=== PATIENT | male | born 1985 | race African-American/Black ===

== ENCOUNTER 2018-08-23 00:14 | Emergency (ER) | payer SELFPAY ==
[~2018-08-23] VITALS: Ht 180.3 cm; Wt 81.6 kg
[2018-08-23 00:56] VITALS: BP 138/81
== END 2018-08-23 01:25 | disposition home or self-care (01) ==
LOC: ER 00:16
DX: H91.92 Unspecified hearing loss, left ear (principal)
CPT/HCPCS: 99281; A4606; Z7502

== ENCOUNTER → 2024-07-11 | Emergency (ER) | payer SELFPAY ==
[~2024-07-11] VITALS: Ht 170.2 cm; Wt 8.2 kg
[~2024-07-11] MED LIST: HYDROCODONE/APAP 5/325MG TABLET ONE; IBUP-1490 PO; IBUPROFEN 600 MG TABLET ONE; TOBR5DRO36 EACHEYE
[2024-07-11] MEDS: IBUPROFEN 600 MG TABLET PO ONE (01:38)
[2024-07-11] MEDS: HYDROCODONE/APAP 5/325MG TABLET PO ONE (01:39)
[2024-07-11 01:41] VITALS: BP 151/101; TEMP 98.1; O2SAT 99
== END | disposition home or self-care (01) ==
LOC: ER 01:02
DX: S00.12XA Contusion of left eyelid and periocular area, initial encounter (principal); W22.8XXA Striking against or struck by other objects, initial encounter; Y93.89 Activity, other specified; Y92.89 Other specified places as the place of occurrence of the external cause; Y99.8 Other external cause status